=== PATIENT | female | born 1985 | race Caucasian/White ===

== ENCOUNTER 2019-04-02 21:33 | Inpatient (IN) | payer OTHER ==
[~2019-04-02] VITALS: Ht 162.6 cm; Wt 67.6 kg
[2019-04-02] MEDS ORDERED: LACTATED RINGERS 1,000 ML IV SCH (22:11)
[2019-04-02] MEDS ORDERED: OXYTOCIN 10 UNITS/ML VIAL IM SCH (22:15)
[2019-04-02] MEDS ORDERED: NALBUPHINE 10 MG/ML AMP IVP PRN (22:15)
[2019-04-02] MEDS ORDERED: PROMETHAZINE 25 MG/ML VIAL IVP PRN (22:15)
[2019-04-02 22:51] LABS: BASOPHILS % (AUTO) 0.5 % (0.0-2.0); EOSINOPHILS # (AUTO) 0.2 K/uL (0-0.4); EOSINOPHILS % (AUTO) 1.9 % (0.0-4.0); HEMATOCRIT 36.7 % (36-48); HEMOGLOBIN 12.4 g/dL (12.0-16.0); LYMPHOCYTES # (AUTO) 2.4 K/uL (2.5-16.5); LYMPHOCYTES % (AUTO) 27.3 % (20.5-51.1); MEAN CORPUSCULAR HEMOGLOBIN 32 pg (27-31); MEAN CORPUSCULAR HGB CONC 34 g/dL (33-37); MEAN CORPUSCULAR VOLUME 94.8 fL (80-94); MONOCYTES # (AUTO) 0.7 K/uL (0.8-1.0); NEUTROPHILS # (AUTO) 5.5 K/uL (1.8-7.7); NEUTROPHILS % (AUTO) 62.3 % (42.2-75.2); PLATELET COUNT (AUTO) 159 K/uL (140-450); RED BLOOD CELL COUNT(AUTO) 3.87 MIL/uL (4.20-5.40); RED CELL DISTRIBUTION WIDTH 12.4 % (11.6-13.7); WHITE BLOOD COUNT (AUTO) 8.9 K/uL (4.8-10.8)
[2019-04-02 22:55] LABS: APPEARANCE,URINE CLEAR (CLEAR); BILIRUBIN,URINE NEGATIVE (NEGATIVE); BLOOD, URINE NEGATIVE (NEGATIVE); COLOR,URINE YELLOW (YELLOW); LEUKOCYTE ESTERASE ,URINE 1+ (NEGATIVE); NITRITE, URINE NEGATIVE (NEGATIVE); UGLUCOSE NEGATIVE (NEGATIVE)
[2019-04-02 23:02] LABS: CARBON DIOXIDE 20.8 mmol/L (21-32); CREATININE 0.5 mg/dL (0.6-1.3); POTASSIUM 3.8 mmol/L (3.5-5.1)
[2019-04-02 23:08] LABS: ALBUMIN 2.6 g/dL (3.4-5.0); TOTAL BILIRUBIN 0.5 mg/dL (0.0-1.0)
[2019-04-02 23:09] LABS: RBC,URINE 0-5 /HPF (0-5)
[2019-04-02] MEDS ORDERED: PNV1TABL PO (23:13)
[2019-04-02] MEDS ORDERED: FERR325E14 PO (23:13)
[2019-04-02 23:22] VITALS: BP 120/64
[2019-04-02] MEDS ORDERED: OXYTOCIN 20 UNITS/LR PREMIX 1,000 ML IV ONE (23:33)
[2019-04-03] MEDS ORDERED: PROMETHAZINE 25 MG/ML VIAL ONE (02:08)
[2019-04-03] MEDS ORDERED: fentaNYL 0.05 MG/ML VIAL IVP PRN (02:25)
[2019-04-03] MEDS ORDERED: fentaNYL 0.05 MG/ML VIAL ONE ×2 (02:28→04:35)
[2019-04-03] MEDS ORDERED: BENZOCAINE/MENTHOL 20%-0.5% 60 GM CAN TP PRN (05:25)
[2019-04-03] MEDS ORDERED: MEASLES, MUMPS, AND RUBELLA 1 VIAL SQVAC PRN (05:25)
[2019-04-03] MEDS ORDERED: OXYTOCIN 10 UNITS/ML VIAL IM PRN (05:25)
[2019-04-03] MEDS ORDERED: METHYLERGONOVINE 0.2 MG TAB PO PRN (05:25)
[2019-04-03] MEDS ORDERED: METHYLERGONOVINE 0.2 MG/ML AMP IM PRN (05:25)
[2019-04-03] MEDS: IBUPROFEN 800 MG TAB PO PRN ×2 (06:14→16:07)
[2019-04-03] MEDS ORDERED: INFLUENZA VACCINE QUAD 0.5 ML SYR IMVAC SCH (08:00)
--- NOTE | 2019-04-03 08:13 | NUR ---
PATIENT HAS BEEN SCREENED AND CATEGORIZED LOW NUTRITION RISK. PATIENT WILL BE SEEN WITHIN 7 DAYS OF ADMISSION. 04/09/[address]
[2019-04-04 08:41] LABS: HEMATOCRIT 38.9 % (36-48); HEMOGLOBIN 13.3 g/dL (12.0-16.0)
[2019-04-04] MEDS: IBUPROFEN 800 MG TAB PO PRN (11:44)
[2019-04-04] MEDS ORDERED: INFLUENZA VACCINE QUAD 0.5 ML SYR IMVAC PRN (23:10)
== END 2019-04-05 08:45 | disposition home or self-care (01) | DRG 560 ==
LOC: MLD 21:33 → MFCC 04-03 08:41
PROVIDERS: ADMIT Obstetrics & Gynecology; ATTEND Obstetrics & Gynecology
PROC: 10E0XZZ Delivery of Products of Conception, External Approach (ICD-10-PCS; principal; 2019-04-03)
PROC: 10907ZC Drainage of Amniotic Fluid, Therapeutic from Products of Conception, Via Natural or Artificial Opening (ICD-10-PCS; 2019-04-03)
PROC: 3E033VJ Introduction of Other Hormone into Peripheral Vein, Percutaneous Approach (ICD-10-PCS; 2019-04-03)
PROC: 0HQ9XZZ Repair Perineum Skin, External Approach (ICD-10-PCS; 2019-04-03)
PROC: 3E0234Z Introduction of Serum, Toxoid and Vaccine into Muscle, Percutaneous Approach (ICD-10-PCS; 2019-04-03)
PROC: 3E0134Z Introduction of Serum, Toxoid and Vaccine into Subcutaneous Tissue, Percutaneous Approach (ICD-10-PCS; 2019-04-03)
PROC: 3E02340 Introduction of Influenza Vaccine into Muscle, Percutaneous Approach (ICD-10-PCS; 2019-04-04)
DX: O69.81X0 Labor and delivery complicated by cord around neck, without compression, not applicable or unspecified (principal); O70.0 First degree perineal laceration during delivery; Z37.0 Single live birth; Z3A.39 39 weeks gestation of pregnancy; Z23 Encounter for immunization
CPT/HCPCS: 36415; 59409; 80053; 81001; 85018; 85025; 86592; 86886; 86900; 86901; 87086; 90715; J2550; J2590; J3010; J7120

== ENCOUNTER 2019-10-18 16:56 | Emergency (ER) | payer OTHER ==
[~2019-10-18] VITALS: Ht 160 cm; Wt 71.3 kg
[~2019-10-18 16:56] MED LIST: FERR325E14 PO; PNV1TABL PO
[2019-10-18 16:59] VITALS: BP 136/77
--- NOTE | 2019-10-18 17:00 | NUR ---
34 y/o female presented to ED c/o vaginal pain 11/23 , burning. Pt states she has had a bump on her vagina since she gave in March. Pt states the bump comes and goes but wanted to get it checked out. Pt LMP 10/13/19 . Pt denies vaginal bleeding. Pt states she has been having white foul odor discharge. Pt states she has burning sensation upon urination. Pt provided urine cup for urine sample. PMH: none RX: None [facility]
--- NOTE | 2019-10-18 17:00 | NUR ---
Patient ambulated to bed 11. RN evaluating patient at bedside.
--- NOTE | 2019-10-18 17:05 | NUR ---
Pt ambulated to restroom w/ steady gait.
--- NOTE | 2019-10-18 17:20 | NUR ---
Pt resting in bed at lowest position, HOB elevated, side rail x1.
--- NOTE | 2019-10-18 17:25 | NUR ---
DANIEL DSOUZA PRESENT WITH JUAN ALBERTO BURRELL DURING VAGINAL EXAM.
--- NOTE | 2019-10-18 17:25 | NUR ---
JUAN ALBERTO Blanchard at bedside for MSE.
[2019-10-18 17:50] VITALS: BP 136/77
--- NOTE | 2019-10-18 17:50 | NUR ---
Patient discharged with v/s stable. Written and verbal after care instructions given and explained. Patient alert, oriented and verbalized understanding of instructions. Ambulatory with steady gait. All questions addressed prior to discharge. ID band removed. Patient advised to follow up with PMD. Rx of ibuprofen 600mg given. Patient educated on indication of medication including possible reaction and side effects. Opportunity to ask questions provided and answered.
== END 2019-10-18 17:50 | disposition home or self-care (01) ==
LOC: MED 16:56
DX: N89.8 Other specified noninflammatory disorders of vagina (principal); R30.0 Dysuria; R03.0 Elevated blood-pressure reading, without diagnosis of hypertension; Z79.899 Other long term (current) drug therapy
CPT/HCPCS: 81002; 81025; 99282